=== PATIENT | female | born 1975 | race Caucasian/White ===

== ENCOUNTER 2017-04-11 15:13 | Emergency (ER) | payer OTHER ==
[~2017-04-11] VITALS: Ht 175.3 cm; Wt 72.7 kg
[~2017-04-11 15:13] MED LIST: ADVIL200 MG PO; BENTYL20 MG PO; BIAXIN500 MG PO; FLAGYL250 MG PO; HYDROCHLOROTH12.5 M3 PO; LABETALOL HCL200 MG PO; MELATONIN3 MG PO; Motrin PO; PREFERA-OB P1 TABLET PO; Percocet 5/325,Endoc PO; TOPROL XL50 MG PO; ZESTRIL10 MG PO
[2017-04-11 16:06] LABS: ADD MIUA? YES; BILIRUBIN NEGATIVE; BLOOD SMALL; COLOR YELLOW ((YELLOW)); GLUCOSE (STRIP) NEGATIVE; KETONES NEGATIVE; LEUKOCYTES NEGATIVE; NITRITE NEGATIVE; PROTEIN (STRIP) NEGATIVE; SPECIFIC GRAVITY 1.009 (1.000-1.030); UROBILINOGEN 0.2 MG/DL (0.2-1.0)
[2017-04-11 16:11] LABS: BACTERIA RARE /HPF; EPITHELIAL CELLS RARE /HPF; MUCUS NONE SEEN /LPF; RED BLOOD CELLS 0-5 /HPF (0-5); UCUL ADDED? NO; WHITE BLOOD CELLS 0-5 /HPF (0-5)
[2017-04-11 16:45] LABS: HEMATOCRIT 39.1 % (36.0-46.0); MCH 32.7 PG (29.0-34.0); MEAN PLAT.VOLUME 11.2 uM^3 (9.5-12.4); PLATELET COUNT 178 K/uL (156-360); RBC DIS.WIDTH-CV 12.2 % (11.8-14.6); RED BLOOD COUNT 3.95 M/uL (3.80-5.20); WHITE BLOOD COUNT 14.6 K/uL (4.1-10.2)
[2017-04-11 16:53] LABS: CHLORIDE 104 mEq/L (99-109); POTASSIUM 4.3 mEq/L (3.7-5.4); SODIUM 137 mEq/L (136-147)
[2017-04-11 16:54] LABS: GLUCOSE 111 mg/dL (70-99)
[2017-04-11 16:56] LABS: ANION GAP 9 MEQ/L (2-14)
[2017-04-11 16:58] LABS: GFR ESTIMATE (CALCULATED) > 59 mL/min/
[2017-04-11 16:59] LABS: UREA NITROGEN (BUN) 12 mg/dL (9-23)
[2017-04-11] MEDS ORDERED: CIPRO500 MG PO (20:11)
[2017-04-11] MEDS ORDERED: FLAGYL500 MG PO (20:11)
[2017-04-11] MEDS ORDERED: VICODIN 5-3001 EACH PO (20:11)
[2017-04-11 20:36] VITALS: BP 150/88
== END 2017-04-11 20:37 | disposition home or self-care (01) ==
LOC: EME 15:13
DX: K57.92 Diverticulitis of intestine, part unspecified, without perforation or abscess without bleeding (principal); I10 Essential (primary) hypertension
CPT/HCPCS: 74176; 80048; 81003; 85027; 99281; 99285; J1885

== ENCOUNTER 2017-08-20 19:25 | Emergency (ER) | payer OTHER ==
[~2017-08-20] VITALS: Ht 172.7 cm; Wt 76.4 kg
[~2017-08-20 19:25] MED LIST changes: +CIPRO500 MG PO; +FLAGYL500 MG PO; +VICODIN 5-3001 EACH PO
[2017-08-20 20:02] LABS: APPEARANCE CLOUDY ((CLEAR)); BILIRUBIN NEGATIVE; BLOOD NEGATIVE; COLOR YELLOW ((YELLOW)); GLUCOSE (STRIP) NEGATIVE; KETONES NEGATIVE; LEUKOCYTES NEGATIVE; NITRITE NEGATIVE; PROTEIN (STRIP) NEGATIVE; SPECIFIC GRAVITY 1.018 (1.000-1.030)
[2017-08-20 20:12] LABS: HEMATOCRIT 41.3 % (36.0-46.0); HEMOGLOBIN 13.7 G/DL (11.9-15.5); MCH 33.4 PG (29.0-34.0); MCHC 33.2 G/DL (30.0-36.0); MCV 100.7 FL (83-99); PLATELET COUNT 204 K/uL (156-360); RBC DIS.WIDTH-CV 11.9 % (11.8-14.6); RBC DIS.WIDTH-SD 44.1 % (39-53)
[2017-08-20 20:20] LABS: AMORPHOUS PHOSPHATE CRYSTALS 1+; BACTERIA 1+ /HPF; EPITHELIAL CELLS 1+ /HPF; MUCUS NONE SEEN /LPF; RED BLOOD CELLS 0-5 /HPF (0-5); UCUL ADDED? NO; WHITE BLOOD CELLS 0-5 /HPF (0-5)
[2017-08-20 20:23] LABS: ALBUMIN 4.1 g/dL (3.2-4.8)
[2017-08-20 20:24] LABS: CHLORIDE 104 mEq/L (99-109); POTASSIUM 3.9 mEq/L (3.7-5.4); SODIUM 138 mEq/L (136-147)
[2017-08-20 20:26] LABS: GLUCOSE 109 mg/dL (70-99); TOTAL PROTEIN 7.1 g/dL (6.4-8.3)
[2017-08-20 20:28] LABS: TOTAL BILIRUBIN 0.3 mg/dL (0.0-1.0)
[2017-08-20 20:29] LABS: ALKALINE PHOSPHATASE 61 IU/L (3-129)
[2017-08-20 20:30] LABS: CREATININE 0.9 mg/dL (0.6-1.3); GFR ESTIMATE (CALCULATED) > 59 mL/min/
[2017-08-20 20:31] LABS: AST (GOT) 18 IU/L (2-34); UREA NITROGEN (BUN) 14 mg/dL (9-23)
[2017-08-20 20:33] LABS: ALT (GPT) 18 IU/L (3-49); LIPASE 32 U/L (1.0-51.0)
[2017-08-20 20:41] LABS: QUANTITATIVE HCG < 4.0 MIU/ML
[2017-08-20] MEDS ORDERED: CITRATE OF MAG296 ML PO (21:52)
[2017-08-20] MEDS ORDERED: BENTYL20 MG PO (21:52)
[2017-08-20 22:23] VITALS: BP 131/81
== END 2017-08-20 22:24 | disposition home or self-care (01) ==
LOC: EME 19:25
DX: R10.11 Right upper quadrant pain (principal); K59.00 Constipation, unspecified; I10 Essential (primary) hypertension; Z90.710 Acquired absence of both cervix and uterus; Z88.0 Allergy status to penicillin
CPT/HCPCS: 74020; 76705; 80053; 81003; 83690; 84702; 85027; 99281; 99284

== ENCOUNTER 2018-03-30 11:29 | Emergency (ER) | payer OTHER ==
[~2018-03-30] VITALS: Ht 175.3 cm; Wt 80.9 kg
[~2018-03-30 11:29] MED LIST changes: +CITRATE OF MAG296 ML PO
[2018-03-30] MEDS ORDERED: KEFLEX500 MG PO (13:43)
[2018-03-30 14:49] VITALS: BP 122/79
== END 2018-03-30 15:01 | disposition home or self-care (01) ==
LOC: EME 11:29
PROC: 3E0234Z Introduction of Serum, Toxoid and Vaccine into Muscle, Percutaneous Approach (ICD-10-PCS; principal; 2018-03-30)
PROC: 0HQDXZZ Repair Right Lower Arm Skin, External Approach (ICD-10-PCS; principal; 2018-03-30)
PROC: 2W3CX1Z Immobilization of Right Lower Arm using Splint (ICD-10-PCS; principal; 2018-03-30)
DX: S51.811A Laceration without foreign body of right forearm, initial encounter (principal); W26.8XXA Contact with other sharp object(s), not elsewhere classified, initial encounter; Z23 Encounter for immunization; I10 Essential (primary) hypertension; Z88.0 Allergy status to penicillin
CPT/HCPCS: 73090; 99281; 99284